=== PATIENT | female | born 1975 | race Caucasian/White ===

== ENCOUNTER → 2018-07-08 | Outpatient (CLI) | payer BC | LOC: COL.RAD 06-25 09:00 | DX: K21.9 Gastro-esophageal reflux disease without esophagitis (principal); K22.8 Other specified diseases of esophagus ==

== ENCOUNTER → 2019-05-25 | Outpatient (CLI) | payer BC | LOC: MC.RAD 13:39 | DX: Z12.31 Encounter for screening mammogram for malignant neoplasm of breast (principal) ==

== ENCOUNTER → 2020-11-06 | Outpatient (CLI) | payer BC | LOC: MC.RAD 16:31 | DX: Z12.31 Encounter for screening mammogram for malignant neoplasm of breast (principal) ==

== ENCOUNTER → 2022-06-19 | Outpatient (CLI) | payer BC | LOC: COL.RAD 13:27 | DX: G44.53 Primary thunderclap headache (principal) ==